=== PATIENT | male | born 1995 | race Hispanic/Latino ===

== ENCOUNTER → 2023-08-19 11:10 | Outpatient (CLI) | payer OTHER, SELFPAY ==
[2023-08-19 19:30] LABS: Monotest Negative (Negative)
[2023-08-19 19:44] LABS: Alanine Aminotransferase 104 IU/L (<50); Albumin 4.1 g/dL (3.5-5.0); Albumin Globulin Ratio 1.3 (1.0-2.8); Alkaline Phosphatase 71 U/L (38-126); Aspartate Aminotransferase 131 IU/L (17-59); BUN Creatinine Ratio 9.5 (6-22); Bilirubin Total 0.5 mg/dL (0.2-1.3); Blood Urea Nitrogen 8 mg/dL (9-20); Calcium 8.8 mg/dL (8.4-10.2); Carbon Dioxide 27 mmol/L (22-32); Chloride 104 mmol/L (98-107); Estimated Glomerular Filt Rate > 60 mL/min (>60); Globulin 3.1 g/dL (1.7-4.1); Glucose 102 mg/dL (70-100); HEMOLYSIS < 15 (0-50); Hematocrit 46.2 % (41-53); Hemoglobin 16.3 g/dL (13.5-17.5); Mean Corpuscular HGB Conc 35.3 % (30-36); Mean Corpuscular Hemoglobin 29.5 PG (26-34); Mean Corpuscular Volume 83.7 fL (80-100); Platelet Count 83 X10^3/uL (150-400); Potassium 4.5 mmol/L (3.4-5.1); Red Blood Cell Count 5.52 X10^6/uL (4.5-5.9); Sodium 137 mmol/L (137-145); Total Protein 7.2 g/dL (6.3-8.2); White Blood Cell Count 2.1 X10^3/uL (4.5-11.0)
[2023-08-19 19:49] LABS: Add Manual Diff / Slide Review YES
[2023-08-19 20:16] LABS: Neutrophils Absolute Manual 987 /uL (3000-5900); Smudge Cells 1+; Total Cells Counted 100
[2023-08-19 20:17] LABS: RBC Morphology Normal Morphology
[2023-08-19 20:20] LABS: HIV 1 & 2 Ab/Ag 4th Gen Combo NEGATIVE (NEGATIVE)
== END ==
PROVIDERS: PCP Pediatrics; Visit Provider Pediatrics
DX: R21 Rash and other nonspecific skin eruption (principal); R50.9 Fever, unspecified
CPT/HCPCS: 80053; 85007; 85025; 86318; 86790; 87389